=== PATIENT | female | born 1985 | race Caucasian/White ===

== ENCOUNTER 2018-06-25 10:10 | Emergency (ER) | payer OTHER ==
[~2018-06-25] VITALS: Ht 160 cm; Wt 45.4 kg
[~2018-06-25 10:10] MED LIST: AMOXICILLIN500 MG PO; ATARAX25 MG PO; AUGMENTIN 875 M1 TAB PO; FLONASE 0.05% 121 EA NAS; KENALOG 0.1% OI15 GM PO; KENALOG0.1% TP; MEDROL DOSEPAK4 MG PO; NKHM; PREDNICOT20 MG PO; ZYRTEC10 MG PO
[2018-06-25 10:34] LABS: BILIRUBIN NEGATIVE (NEGATIVE); BLOOD 3+ (NEGATIVE); CLARITY CLOUDY (CLEAR); COLOR YELLOW (YELLOW); GLUCOSE NEGATIVE (NEGATIVE); KETONE NEGATIVE (NEGATIVE); LEUKO ESTERASE 1+ (NEGATIVE); NITRITE NEGATIVE (NEGATIVE); PH 7.5 (5.0-9.0)
[2018-06-25 10:57] LABS: BACTERIA 2+; RBC TNTC rbc/hpf (0-2); WBC 41-50 wbc/hpf (0-5)
[2018-06-25] MEDS ORDERED: SEPTDS PO (10:58)
[2018-06-25] MEDS ORDERED: PYRIDIUM200 M1 PO (10:58)
[2018-06-25] MEDS ORDERED: ZOFRAN4 MG PO (10:58)
== END 2018-06-25 11:22 | disposition home or self-care (01) ==
LOC: ED 10:10
PROVIDERS: Nurse Practitioner Family
DX: N39.0 Urinary tract infection, site not specified (principal)

== ENCOUNTER 2020-02-06 16:44 | Emergency (ER) | payer OTHER ==
[~2020-02-06 16:44] MED LIST changes: +PYRIDIUM200 M1 PO; +SEPTDS PO; +ZOFRAN4 MG PO
[2020-02-06] MEDS ORDERED: SEPTDS PO (18:07)
== END 2020-02-06 18:23 | disposition home or self-care (01) ==
LOC: ED 16:44
DX: H60.02 Abscess of left external ear (principal)

== ENCOUNTER → 2020-07-30 | Outpatient (CLI) | payer OTHER ==
[2020-07-31 06:12] LABS: HEP B CORE AB, IGM Negative (Negative); HEPATITIS B SURFACE AG Negative (Negative); HEPATITIS C VIRUS ANTIBODY <0.1 s/co (0.0-0.9)
[2020-08-06 13:06] LABS: HSV 2 IGM AB <1:10 titer (<1:10); HSV I IGM ABS <1:10 titer (<1:10)
== END | disposition home or self-care (01) ==
LOC: LAB 10:26
PROVIDERS: ATTEND Pediatrics
DX: Z20.2 Contact with and (suspected) exposure to infections with a predominantly sexual mode of transmission (principal)

== ENCOUNTER → 2020-08-26 | Outpatient (CLI) | payer OTHER | END | disposition home or self-care (01) | LOC: COVID19 13:05 | PROVIDERS: ATTEND Pediatrics | DX: Z20.828 Contact with and (suspected) exposure to other viral communicable diseases (principal) ==

== ENCOUNTER → 2021-06-15 | Outpatient (CLI) | payer OTHER | END | disposition home or self-care (01) | LOC: COVID19 16:14 | PROVIDERS: ATTEND Internal Medicine | DX: U07.1 COVID-19 (principal) ==

== ENCOUNTER 2023-02-01 21:46 | Emergency (ER) | payer OTHER ==
[~2023-02-01] VITALS: Ht 162.5 cm; Wt 49.0 kg
[2023-02-01] MEDS ORDERED: SEPTDS PO (23:14)
== END 2023-02-01 23:25 | disposition home or self-care (01) ==
LOC: ED 21:46
DX: S61.211A Laceration without foreign body of left index finger without damage to nail, initial encounter (principal); S61.213A Laceration without foreign body of left middle finger without damage to nail, initial encounter; Z87.891 Personal history of nicotine dependence; W26.0XXA Contact with knife, initial encounter; Y93.89 Activity, other specified; Y92.89 Other specified places as the place of occurrence of the external cause; Y99.8 Other external cause status

== ENCOUNTER 2024-04-03 10:32 | Emergency (ER) | payer OTHER ==
[~2024-04-03] VITALS: Ht 167.6 cm; Wt 47.6 kg
[2024-04-03] MEDS ORDERED: Dexamethasone Sodium Phospha 20 MG/5 ML VIAL IM ONE (11:05)
[2024-04-03] MEDS ORDERED: PREDNISONE50 MG PO (11:05)
== END 2024-04-03 10:51 | disposition home or self-care (01) ==
LOC: ED 10:32
DX: L23.7 Allergic contact dermatitis due to plants, except food (principal); Z79.2 Long term (current) use of antibiotics

== ENCOUNTER 2025-08-13 11:17 | Emergency (ER) | payer OTHER ==
[~2025-08-13] VITALS: Ht 160 cm; Wt 47.6 kg
[~2025-08-13 11:17] MED LIST changes: +PREDNISONE50 MG PO
[2025-08-13 12:23] LABS: BILIRUBIN Negative (Negative); BLOOD 3+ (Negative); CLARITY Turbid (Clear); COLOR Dark Yellow (Yellow); KETONE Trace (Negative); LEUKO ESTERASE 2+ (Negative); NITRITE Positive (Negative); PH 7.0 (4.5-8.0); SPECIFIC GRAVITY >= 1.030 (1.001-1.030); UROBILINOGEN 1.0 E.U./dl (0.0-1.0)
[2025-08-13 12:42] LABS: BACTERIA 1+; RBC TNTC rbc/hpf (0-2)
[2025-08-13] MEDS ORDERED: MACROBID100 M1 PO (13:13)
[2025-08-13] MEDS ORDERED: PYRIDIUM100 MG PO (13:13)
[2025-08-13] MEDS ORDERED: FLUCONAZOLE100 MG PO (13:13)
[2025-08-13] MEDS ORDERED: Nitrofurantoin Monohydrate/N 100 MG CAP PO ONE (13:15)
== END 2025-08-13 13:38 | disposition home or self-care (01) ==
LOC: ED 11:17
PROVIDERS: Nurse Practitioner Family
DX: N30.01 Acute cystitis with hematuria (principal)